=== PATIENT | male | born 1950 | race Caucasian/White ===

== ENCOUNTER → 2017-10-16 | Outpatient (CLI) | payer MEDICARE, OTHER ==
--- NOTE | 2017-10-16 19:42 | REP ---
CHEST, TWO VIEWS: There is no evidence of acute infiltrate. No pleural effusion is seen. The heart is normal in size. The mediastinal silhouette is unremarkable. The visualized osseous structures are intact. IMPRESSION: No acute pulmonary disease. Signed by Jose Medrano MD 10/17/2017 08:30 P
== END ==
LOC: M WUC 12:37
PROVIDERS: ATTEND Nurse Practitioner Adult Health
DX: R05 Cough (principal)

== ENCOUNTER → 2020-11-29 | Outpatient (CLI) | payer SELFPAY | LOC: M LABSMTC 10:18 | PROVIDERS: ATTEND Pediatrics | DX: Z20.822 Contact with and (suspected) exposure to COVID-19 (principal) ==

== ENCOUNTER 2021-07-24 12:56 | Emergency (ER) | payer MEDICARE, OTHER ==
[~2021-07-24] VITALS: Ht 172.7 cm; Wt 91.8 kg
[2021-07-24] MEDS ORDERED: NOVOINJ SC (13:09)
[2021-07-24] MEDS ORDERED: ASPI81TA26 PO (13:09)
[2021-07-24] MEDS ORDERED: SIMV20TA22 (13:09)
[2021-07-24] MEDS ORDERED: LOSA50TA88 (13:09)
[2021-07-24] MEDS ORDERED: FARX1TAB5 (13:09)
[2021-07-24] MEDS ORDERED: LEVE1INJ5 (13:09)
[2021-07-24] MEDS ORDERED: METF10004 (13:09)
[2021-07-24] MEDS ORDERED: RABIES VACCINE HUMAN 2.5 INTERNATIONAL UNITS/ML VIAL (90675) IM ONE (16:35)
[2021-07-24] MEDS ORDERED: RABIES IMMUNE GLOBULIN 1500 INTERNATIONAL UNIT/5ML VIAL (90375) IM ONE ×2 (16:35→17:00)
[2021-07-24] MEDS ORDERED: RABIES IMMUNE GLOBULIN 300 INTERNATIONAL UNITS/1ML VIAL (90375) IM ONE (16:45)
[2021-07-24 17:04] VITALS: BP 136/82
== END 2021-07-24 17:45 | disposition home or self-care (01) ==
LOC: M ED 12:56
DX: S51.851A Open bite of right forearm, initial encounter (principal); W54.0XXA Bitten by dog, initial encounter; Y92.9 Unspecified place or not applicable; Y93.9 Activity, unspecified; Y99.9 Unspecified external cause status; Z20.3 Contact with and (suspected) exposure to rabies; Z23 Encounter for immunization; I10 Essential (primary) hypertension; E11.9 Type 2 diabetes mellitus without complications; Z79.4 Long term (current) use of insulin; Z79.899 Other long term (current) drug therapy

== ENCOUNTER 2021-07-27 07:02 | Emergency (ER) | payer MEDICARE, OTHER ==
[~2021-07-27] VITALS: Ht 172.7 cm; Wt 93.8 kg
[~2021-07-27 07:02] MED LIST: ASPI81TA26 PO; FARX1TAB5; LEVE1INJ5; LOSA50TA88; METF10004; NOVOINJ SC; SIMV20TA22
[2021-07-27] MEDS ORDERED: RABIES VACCINE HUMAN 2.5 INTERNATIONAL UNITS/ML VIAL (90675) IM ONE (07:15)
[2021-07-27 07:31] VITALS: BP 124/74
== END 2021-07-27 07:37 | disposition home or self-care (01) ==
LOC: M ED 07:02
DX: Z20.3 Contact with and (suspected) exposure to rabies (principal); Z23 Encounter for immunization; S51.851D Open bite of right forearm, subsequent encounter; W54.0XXD Bitten by dog, subsequent encounter; Y92.9 Unspecified place or not applicable; Y93.9 Activity, unspecified; Y99.9 Unspecified external cause status; E11.9 Type 2 diabetes mellitus without complications; I10 Essential (primary) hypertension; E78.5 Hyperlipidemia, unspecified; Z79.82 Long term (current) use of aspirin; Z79.4 Long term (current) use of insulin; Z79.899 Other long term (current) drug therapy

== ENCOUNTER 2021-07-31 06:40 | Emergency (ER) | payer MEDICARE, OTHER ==
[~2021-07-31] VITALS: Ht 172.7 cm; Wt 93.2 kg
[2021-07-31] MEDS ORDERED: RABIES VACCINE HUMAN 2.5 INTERNATIONAL UNITS/ML VIAL (90675) IM ONE (06:55)
[2021-07-31 07:25] VITALS: BP 135/68
== END 2021-07-31 07:27 | disposition home or self-care (01) ==
LOC: M ED 06:40
DX: Z20.3 Contact with and (suspected) exposure to rabies (principal); Z23 Encounter for immunization; S51.851D Open bite of right forearm, subsequent encounter; W54.0XXD Bitten by dog, subsequent encounter; Y92.9 Unspecified place or not applicable; Y93.9 Activity, unspecified; Y99.9 Unspecified external cause status; E11.9 Type 2 diabetes mellitus without complications; I10 Essential (primary) hypertension; E78.5 Hyperlipidemia, unspecified; Z79.4 Long term (current) use of insulin; Z79.899 Other long term (current) drug therapy

== ENCOUNTER 2021-08-07 06:51 | Emergency (ER) | payer MEDICARE, OTHER ==
[~2021-08-07] VITALS: Ht 172.7 cm; Wt 92.4 kg
[2021-08-07 06:52] VITALS: BP 128/75
[2021-08-07] MEDS ORDERED: RABIES VACCINE HUMAN 2.5 INTERNATIONAL UNITS/ML VIAL (90675) IM ONE (07:10)
== END 2021-08-07 08:05 | disposition home or self-care (01) ==
LOC: M ED 06:51
DX: Z23 Encounter for immunization (principal)

== ENCOUNTER → 2025-10-20 | Outpatient (CLI) | payer MEDICARE, OTHER ==
[~2025-10-20] MED LIST changes: +INSU100I6; -LEVE1INJ5; +LOSA50TA28; -LOSA50TA88
== END ==
LOC: M WUC 09:01
DX: M51.34 Other intervertebral disc degeneration, thoracic region (principal); R07.9 Chest pain, unspecified; R05.1 Acute cough